=== PATIENT | female | born 1940 | race Caucasian/White ===

== ENCOUNTER 2020-05-25 12:42 | Outpatient (CLI) | payer MEDICARE, OTHER, SELFPAY ==
--- NOTE | ~2020-05-25 | XR_ITS ---
EXAMINATION: HAND-ELI ARTHRITIS 3+VIEWS DATE: 05/25/2020 13:38 INDICATION: Inflammatory arthritis, seronegative rheumatoid arthritis. TECHNIQUE: Posteroanterior, lateral, and oblique views of the left and of the right hands as well as a ballcatchers view of both hands were obtained. COMPARISON: None. FINDINGS: Bone alignment is normal at both hands. No fractures. Diffuse osteopenia. Polyarticular osteoarthriti s, with severe joint space narrowing at the bilateral triscaphe joints, moderate joint space narrowin g at the left first metacarpophalangeal, first interphalangeal and second distal interphalangeal join ts and on the right at the first interphalangeal and fourth distal interphalangeal joints. Mild joint space narrowing at the bilateral wrist, midcarpal, first carpometacarpal and many of the remaining i nterphalangeal joints. The joint space narrowing for the most part appears nonuniform with small asso ciated marginal osteophytes and favor osteoarthritis over an inflammatory arthritis. There is however a periarticular erosion at the radial base of the left second middle phalanx. There are also lucenci es within sclerotic margins at the heads of the right second and third metacarpals, distal pole of th e right scaphoid, distal articular surface of the right lunate and at the base of the bilateral first metacarpals and right second metacarpal which could represent additional erosions or degenerative dupree bchondral cysts. IMPRESSION: 1. Relatively symmetric pattern of polyarticular osteoarthritis at both hands, severe at the bilatera l triscaphe joints. 2. Erosion at the base of the left second middle phalanx and additional potential erosions as detaile d above and could not exclude an inflammatory arthritis such as rheumatoid although the most typicall y affected metacarpophalangeal joint spaces appear relatively preserved. Reviewed, dictated and finalized at location A. FACTURING ENGINEERING TECHNOLOGIST IMPRESSION: 1. Relatively symmetric pattern of polyarticular osteoarthritis at both hands, severe at the bilateral triscaphe joints. 2. Erosion at the base of the left second middle phalanx and additional potenti al erosions as detailed above and could not exclude an inflammatory arthritis s uch as rheumatoid although the most typically affected metacarpophalangeal join t spaces appear relatively preserved.
--- NOTE | ~2020-05-25 | XR_ITS ---
XR knee RT 3V, XR knee LT 3V 05/25/2020 13:38 Indication: Inflammatory arthritis Procedure: 3 views each knee Comparison: No prior studies for comparison. Findings: No fracture, subluxation or dislocation. No significant joint effusion. No erosive changes. Normal mineralization. No foreign bodies. Impression: 1: No significant bone or joint abnormality. Reviewed, dictated and finalized at location B. RACKER Impression: 1: No significant bone or joint abnormality. Impression: 1: No significant bone or joint abnormality.
--- NOTE | ~2020-05-25 | XR_ITS ---
EXAMINATION: XR hip BI 2V w AP pelvis DATE: 05/25/2020 13:38 INDICATION: Inflammatory arthritis. Seronegative rheumatoid arthritis. TECHNIQUE: Anteroposterior view of the pelvis and anteroposterior and frog-leg lateral views of the l eft hip and anteroposterior and frog-leg lateral views of the right hip and were obtained. COMPARISON: None. FINDINGS: Bone alignment is normal. No fracture or suspected avascular necrosis. Bilateral hip joint spaces are normal. Mild right and minimal left sacroiliac osteoarthritis. No erosions. Moderate to severe facet osteoarthritis on the left at L4-L5 and bilaterally at L5-S1. Atherosclerotic calcifications at the bilateral iliac arteries. IMPRESSION: 1. Bilateral hip joint spaces are normal. Reviewed, dictated and finalized at location A. K TOP ROLLER
--- NOTE | ~2020-05-25 | XR_ITS ---
EXAMINATION: XR foot LT standing 2V, XR foot RT standing 2V DATE: 05/25/2020 13:38 INDICATION: Inflammatory arthritis, seronegative rheumatoid arthritis. TECHNIQUE: 1. Standing dorsal plantar and lateral views of the left foot were obtained. 2. Standing dorsal plantar and lateral views of the right foot were obtained. COMPARISON: None. FINDINGS: Normal alignment at the left foot. Right hallux valgus with bunion. No fracture at either foot. Mild polyarticular osteoarthritis characterized by nonuniform joint space narrowing and/or tiny marginal o steophytes at the bilateral ankles and involving the majority of the joints in both feet. No erosions to suggest an inflammatory arthritis in either foot. Soft tissues are unremarkable with no ankle radha nt effusions. IMPRESSION: 1. Mild polyarticular osteoarthritis at the bilateral feet and ankles. Reviewed, dictated and finalized at location A. RANCE ADVISER IMPRESSION: 1. Mild polyarticular osteoarthritis at the bilateral feet and ankles.
[2020-05-25 13:40] LABS: Hematocrit 38.6 % (37.0-47.0); Hemoglobin 12.7 g/dL (12.0-15.0); Mean Corpuscular HGB Conc 32.9 g/dl (32-36); Mean Corpuscular Hemoglobin 29.5 pg (26-34); Mean Corpuscular Volume 89.8 fl (80-100); Mean Platelet Volume 10.4 fl (7.4-10.4); Platelet Count Result 216 k/mm3 (150-375); Red Cell Distribution Width 13.2 % (11.5-14.5); White Blood Count 6.3 K/mm3 (4.5-10.0)
[2020-05-25 13:47] LABS: Add Urine Microscopic? YES; Appearance Urine Clear (Clear); Bacteria Urine Trace /hpf; Bilirubin Urine Negative (Negative); Blood Urine Negative (Negative); Color Urine Yellow (Yellow); Glucose Urine UA Negative (Negative); Ketones Urine Negative (Negative); Leukocyte Esterase Ur Negative LEU/UL (Negative); Mucus Urine Rare /lpf; Nitrate Urine Negative (Negative); Protein Urine Negative (Negative); RBC Urine 0-2 /hpf (0-2); Squamous Epithelial Cell Urine Few /hpf (Few); Urobilinogen Urine Negative mg/dL (<2.0); WBC Urine 0-3 /hpf
[2020-05-25 13:56] LABS: Alanine Aminotransferase 14 U/L (4-35); Alkaline Phosphatase 44 U/L (38-126); Anion Gap 4 mmol/L (8-16); Aspartate Amino Transferase 28 U/L (14-36); Bilirubin,Total 0.7 mg/dL (0.2-1.3); Blood Urea Nitrogen 16 mg/dL (7-17); CRP 0.7 mg/dL (<1.0); Carbon Dioxide 33 mmol/L (22-30); Chloride 102 mmol/L (98-107); Estimated Glomerular Filt Rate 48; Glucose 93 mg/dL (65-105); Potassium 3.9 mmol/L (3.4-5.0); Sodium 139 mmol/L (137-145)
[2020-05-25 14:56] LABS: Erythrocyte Sedimentation Rate 17 mm/hr (0-20)
== END 2020-05-25 12:43 | disposition home or self-care (01) ==
PROVIDERS: PCP Family Medicine; Visit Provider Internal Medicine
DX: M06.09 Rheumatoid arthritis without rheumatoid factor, multiple sites (principal); M19.90 Unspecified osteoarthritis, unspecified site; M06.9 Rheumatoid arthritis, unspecified; M89.49 Other hypertrophic osteoarthropathy, multiple sites
CPT/HCPCS: 36415; 73130; 73521; 73562; 73620; 80053; 81001; 85027; 85652; 86140

== ENCOUNTER 2021-02-26 10:01 | Emergency (ER) | payer MEDICARE, OTHER, SELFPAY ==
[2021-02-26 10:16] VITALS: BP 183/63; PULSE 67; RESP 20; TEMP 36.3; O2SAT 100
--- NOTE | 2021-02-26 10:34 | ED.URI ---
HPI - URI/Sore Throat General Chief Complaint: Upper Respiratory Infection Stated Complaint: SORE THROAT Source: patient and RN notes reviewed Mode of arrival: ambulatory History of Present Illness HPI Narrative: This is a 80-year-old female who presented to urgent care with complaints of a sore throat and cough that developed yesterday. Patient notes that she was out with family members on a 4 sears when she developed a sore throat and cough. She has no other associated symptoms, she did not take anything at home for her symptoms. The patient denies SOB, CP, palpitation, extremity numbness, lightheadedness, dizziness, constipation, diarrhea, chills, or fever. Related Data Home Medications Medication Instructions Recorded Confirmed adalimumab 40 mg/0.8 mL See Rx Instructions SUB-Q .COMPLEX 01/01/20 02/26/21 subcutaneous syringe kit albuterol sulfate 90 mcg/actuation 1 puff INHALATION Q4H PRN 01/01/20 02/26/21 aerosol inhaler alprazolam 0.25 mg tablet 0.25 mg PO DAILY PRN 01/01/20 02/26/21 cetirizine 10 mg capsule 10 mg PO DAILY cap 01/01/20 02/26/21 cholecalciferol (vitamin D3) 50 50 mcg PO DAILY 01/01/20 02/26/21 mcg (2,000 unit) chewable tablet levothyroxine 75 mcg capsule 75 mcg PO DAILY 01/01/20 02/26/21 metoprolol tartrate 25 mg tablet 25 mg PO DAILY 01/01/20 02/26/21 montelukast 10 mg tablet 10 mg PO DAILY 01/01/20 02/26/21 rosuvastatin 10 mg tablet 10 mg PO DAILY 01/01/20 02/26/21 Allergies Allergy/AdvReac Type Severity Reaction Status Date / Time epinephrine AdvReac Severe panic Verified 02/26/21 10:33 attack Review of Systems Review of Systems: A 14 organ system Review of Systems was performed and pertinent positives included in the HPI, otherwise remaining ROS is negative. [facility] Past Medical History Medical History Abnormal CT scan, chest Anxiety Arthritis Chronic headaches Colorectal cancer COPD (chronic obstructive pulmonary disease) Depression Fibromyalgia (~2012) Gallbladder disorder GERD (gastroesophageal reflux disease) Heart disease Inflammatory arthritis Pericardial effusion Seronegative rheumatoid arthritis of multiple sites (~2018) Thyroid disorder Family History Family History Mother , 42 yo Tuberculosis Exam Narrative: GENERAL: This is a well-nourished, well-developed patient, in no apparent distress. HEAD: normocephalic, atraumatic. EYES: PERRL. Sclera clear/white. Vision is grossly intact. EARS: External ears normal, auditory canals clear and without drainage, TMs normal without perforation. Hearing grossly intact. NOSE: External nose normal with no obvious nasal discharge, nares without redness, no rhinorrhea. THROAT: Mucous membranes moist, posterior pharynx slightly erythematous NECK: Neck supple, non-tender without lymphadenopathy, masses or thyromegaly. CARDIOVASCULAR: Regular rate and rhythm without murmurs, gallops, or rubs. RESPIRATORY: Clear to auscultation. Breath sounds equal bilaterally. No wheezes, rales, or rhonchi. GASTROINTESTINAL: Abdomen soft, non-tender, nondistended. Bowel sounds are active. No hepato-splenomegaly, or palpable masses. No guarding. SKIN: warm, intact with no suspicious lesions or rash, good texture and turgor. NEURO: awake, alert, and oriented to person, place and time. There were no obvious focal neurologic abnormalities. Steady gait EXTREMITIES: Normal range of motion. No edema. No calf tenderness. Negative Homans sign bilaterally. BACK: Nontender without deformity or crepitance. No flank tenderness. Course Course Emergency Course: Instructed to purchase [id number] medication for treatment Vital Signs Vital signs: Vital Signs Temperature 97.4 F L 02/26/21 10:16 Pulse Rate 67 02/26/21 10:16 Respiratory Rate 20 02/26/21 10:16 Blood Pressure 183/63 H 02/26/21 10:16 Pulse Oximetry 100
== END 2021-02-26 10:44 | disposition home or self-care (01) ==
PROVIDERS: Emergency Provider Nurse Practitioner; PCP Family Medicine
DX: J00 Acute nasopharyngitis [common cold] (principal); F32.9 Major depressive disorder, single episode, unspecified; F41.9 Anxiety disorder, unspecified; J44.9 Chronic obstructive pulmonary disease, unspecified
CPT/HCPCS: 87081; 87880; 99213; G0463

== ENCOUNTER 2022-03-17 14:42 | Outpatient (CLI) | payer MEDICARE, OTHER, SELFPAY ==
[2022-03-17 15:31] LABS: Hematocrit 37.4 % (37.0-47.0); Hemoglobin 11.9 g/dL (12.0-15.0); Mean Corpuscular HGB Conc 31.8 g/dl (32-36); Mean Corpuscular Volume 91.2 fl (80-100); Mean Platelet Volume 9.7 fl (7.4-10.4); Platelet Count Result 222 k/mm3 (150-375); Red Cell Distribution Width 13.4 % (11.5-14.5); White Blood Count 5.1 K/mm3 (4.5-10.0)
[2022-03-17 15:31] LABS: Appearance Urine Clear (Clear); Bilirubin Urine Negative (Negative); Blood Urine Negative (Negative); Color Urine Yellow (Yellow); Glucose Urine UA Negative (Negative); Ketones Urine Negative (Negative); Leukocyte Esterase Ur Trace LEU/UL (Negative); Nitrate Urine Negative (Negative); Protein Urine Negative (Negative); Urobilinogen Urine 0.2 mg/dL (<2.0)
[2022-03-17 15:36] LABS: Add Urine Microscopic? YES; RBC Urine 0-2 /hpf (0-2); WBC Urine 0-3 /hpf
[2022-03-17 15:52] LABS: Alanine Aminotransferase 22 U/L (6-35); Albumin Level 4.3 g/dL (3.5-5.1); Alkaline Phosphatase 48 U/L (38-126); Anion Gap 8 mmol/L (8-16); Aspartate Amino Transferase 37 U/L (14-36); Bilirubin,Total 0.6 mg/dL (0.2-1.3); Blood Urea Nitrogen 17 mg/dL (7-17); CRP 0.5 mg/dL (<1.0); Carbon Dioxide 29 mmol/L (22-30); Chloride 100 mmol/L (98-107); Estimated Glomerular Filt Rate 53; Glucose 100 mg/dL (65-110); Potassium 4.3 mmol/L (3.4-5.0); Sodium 137 mmol/L (137-145); Uric Acid 6.5 mg/dL (2.5-7.5)
[2022-03-17 15:53] LABS: Rheumatoid Factor < 8.6 IU/ML (<12)
[2022-03-17 15:56] LABS: Complement C3 104 mg/dL (88-165)
[2022-03-17 16:19] LABS: Erythrocyte Sedimentation Rate 16 mm/hr (0-20)
[2022-03-17 17:34] LABS: Vitamin D 25 Hydroxy 70.4 ng/mL
[2022-03-21 17:33] LABS: NIL 0.03 IU/mL; Quantiferon TB Plus, 1T NEGATIVE (NEGATIVE); TB1-NIL 0.04 IU/mL; TB2-NIL 0.03 IU/mL
[2022-03-21 22:10] LABS: Anti Nuclear Antibody Titer >=1:1280 (Negative)
[2022-03-22 11:58] LABS: Anti Cyclic Citrullinated Pept <16 Units (<20)
[2022-03-23 10:00] LABS: SM Antibody <1.0; SM/RNP Antibody <1.0; SS-A <1.0; SS-B <1.0
== END 2022-03-17 14:43 | disposition home or self-care (01) ==
LOC: ANHLAB 15:00
PROVIDERS: PCP Family Medicine; Visit Provider Internal Medicine
DX: M19.90 Unspecified osteoarthritis, unspecified site (principal); M79.7 Fibromyalgia; M06.09 Rheumatoid arthritis without rheumatoid factor, multiple sites
CPT/HCPCS: 36415; 80053; 81001; 82306; 84443; 84550; 85027; 85652; 86038; 86039; 86140; 86160; 86200; 86225; 86235; 86430; 86480